=== PATIENT | female | born 1935 | race Caucasian/White ===

== ENCOUNTER → 2016-09-12 | Outpatient (CLI) | payer MEDICARE, BC | LOC: KOH-I 09-07 11:30 | DX: M67.449 Ganglion, unspecified hand (principal) | CPT/HCPCS: 73218 ==

== ENCOUNTER 2016-10-12 09:47 | Emergency (ER) | payer MEDICARE, BC ==
[2016-10-12 10:26] LABS: HEMOGLOBIN 11.9 gm/dl (12.3-15.3); RED BLOOD COUNT 3.87 M/UL (4.00-5.10); WHITE BLOOD COUNT 11.8 K/UL (4.5-11.0)
[2016-10-12 10:42] LABS: BUN/CREATININE RATIO 20 (0-10)
== END 2016-10-12 12:15 | disposition home or self-care (01) ==
LOC: ER1 09:47
PROVIDERS: Specialist/Technologist Athletic Trainer
DX: J40 Bronchitis, not specified as acute or chronic (principal); I10 Essential (primary) hypertension; Z88.5 Allergy status to narcotic agent
CPT/HCPCS: 36415; 71010; 80053; 81001; 82550; 82553; 83605; 83874; 84484; 85025; 87040; 93005; 99285

== ENCOUNTER 2020-12-02 13:18 | Emergency (ER) | payer BC ==
[2020-12-02 14:20] LABS: HEMOGLOBIN 13.9 gm/dl (12.3-15.3); RED BLOOD COUNT 4.32 M/UL (4.00-5.10); WHITE BLOOD COUNT 7.4 K/UL (4.5-11.0)
[2020-12-02 14:38] LABS: BUN/CREATININE RATIO 12 (0-10)
[2020-12-02] MEDS ORDERED: OMNICEF 300 MG300 MG PO (15:30)
== END 2020-12-02 15:49 | disposition home or self-care (01) ==
LOC: ER1 13:18
PROVIDERS: Physician Assistant
DX: R30.0 Dysuria (principal); E78.5 Hyperlipidemia, unspecified; I10 Essential (primary) hypertension; Z88.5 Allergy status to narcotic agent
CPT/HCPCS: 80053; 81001; 85025; 87086; 99283